=== PATIENT | male | born 1975 | race Caucasian/White ===

== ENCOUNTER 2024-03-30 15:11 | Emergency (ER) | payer BC ==
[~2024-03-30] VITALS: Ht 188 cm; Wt 104.3 kg
[2024-03-30] MEDS: 0.9%NACL 1000ML 1,000 ML IV ONE (16:11)
[2024-03-30 16:36] LABS: BASOPHILS # (AUTO) 0.04 K/uL (0.00-0.20); BASOPHILS % (AUTO) 0.4 % (0.0-5.0); EOSINOPHILS # (AUTO) 0.06 K/uL (0.00-0.70); EOSINOPHILS % (AUTO) 0.6 % (0.0-8.0); HEMATOCRIT 41.2 % (42-54); IMMATURE GRANULOCYTE ABSOLUTE 0.04 K/uL (0-1); LYMPHOCYTES # (AUTO) 1.4 K/uL (1.0-4.8); LYMPHOCYTES % (AUTO) 14.4 % (21.0-51.0); MEAN CORPUSCULAR HEMOGLOBIN 28.8 pg (27.0-33.0); MEAN CORPUSCULAR VOLUME 87.3 fL (79-99); MONOCYTES # (AUTO) 0.8 K/uL (0.1-1.0); MONOCYTES % (AUTO) 7.9 % (3.0-13.0); NEUTROPHILS # (AUTO) 7.3 K/uL (1.8-7.7); NEUTROPHILS % (AUTO) 76.3 % (40.0-77.0); PLATELET COUNT (AUTO) 350 K/uL (130-400); RED BLOOD CELL COUNT(AUTO) 4.72 MIL/uL (4.50-6.20); RED CELL DISTRIBUTION WIDTH 11.8 % (11.0-15.5); WHITE BLOOD COUNT (AUTO) 9.6 K/uL (4.8-10.8)
[2024-03-30 16:39] LABS: ADD UA MICROSCOPIC NO; APPEARANCE,URINE CLEAR (CLEAR); BILIRUBIN,URINE NEGATIVE (NEGATIVE); COLOR,URINE LIGHT-YELLOW (YELLOW); GLUCOSE, URINE (UA) NEGATIVE (NEGATIVE); KETONES,URINE NEGATIVE (NEGATIVE); LEUKOCYTE ESTERASE ,URINE NEGATIVE Leu/uL (NEGATIVE); NITRATE,URINE NEGATIVE (NEGATIVE); OCCULT BLOOD,URINE NEGATIVE (NEGATIVE); PROTEIN,URINE NEGATIVE (NEGATIVE); UROBILINOGEN,URINE 0.2 mg/dL (0.2-1.0)
[2024-03-30 16:44] LABS: CREATININE 0.8 mg/dL (0.5-1.3)
[2024-03-30] MEDS: KETOROLAC 30MG VIAL (30MG/ML) IVP ONE (18:23)
[2024-03-30] MEDS: TRIAMCINOLONE ACETONIDE 40 MG/ML 1ML VIAL IM ONE (18:23)
[2024-03-30] MEDS: HYDROCODONE/ACETAMINOPHEN 5/325 MG TAB PO STA (20:15)
[2024-03-30] MEDS ORDERED: NAPR-1192 PO (20:21)
[2024-03-30] MEDS ORDERED: DICL100G32 TP (20:21)
[2024-03-30 20:35] VITALS: BP 122/77; PULSE 66; RESP 20; O2SAT 98
== END 2024-03-30 20:35 | disposition home or self-care (01) ==
LOC: EDH 15:11
DX: M19.90 Unspecified osteoarthritis, unspecified site (principal)
CPT/HCPCS: 99284; 96374; 96361; 82550; 84484; 80048; 85025; 86000 ×6; 81003; 36415; 96372; J7030; J3301; J1885

== ENCOUNTER → 2024-04-03 | Outpatient (CLI) | payer BC ==
[~2024-04-03] MED LIST: DICL100G32 TP; IOHEXOL 350 MG/ML 100ML INFUS..BTL IV ONE; NAPR-1192 PO
== END | disposition home or self-care (01) ==
LOC: RAH 10:40
PROVIDERS: ATTEND Internal Medicine Gastroenterology
DX: R61 Generalized hyperhidrosis (principal); R63.4 Abnormal weight loss; K44.9 Diaphragmatic hernia without obstruction or gangrene; M47.815 Spondylosis without myelopathy or radiculopathy, thoracolumbar region
CPT/HCPCS: 71270; 74178; Q9967